=== PATIENT | male | born 1935 | race Caucasian/White ===

== ENCOUNTER 2017-04-01 16:55 | Emergency (ER) | payer MEDICARE, MEDICAID ==
[2017-04-01 17:35] LABS: ABSOLUTE MONOCYTES (AUTO) 0.8 10^3/uL (0.1-1.4); ABSOLUTE NEUT (AUTO) 10.8 10^3/uL (1.7-8.2); BASOPHILS % (AUTO) 0.2 % (0-2); EOSINOPHILS % (AUTO) 0.3 % (0-6); HEMATOCRIT 37.6 % (37.9-51.0); HEMOGLOBIN 12.8 g/dL (13.5-17.0); HGB HCT DIFFERENCE 0.8; LYMPHOCYTES % (AUTO) 7.7 % (13-45); MEAN CORPUSCULAR HEMOGLOBIN 32.4 pg (27.0-33.4); MEAN CORPUSCULAR VOLUME 95 fl (80-97); MONOCYTES % (AUTO) 6.4 % (3-13); RED BLOOD COUNT 3.95 10^6/uL (4.35-5.55); RED CELL DISTRIBUTION WIDTH 15.8 % (11.5-14.0); SEGMENTED NEUTROPHILS % (AUTO) 85.4 % (42-78); WHITE BLOOD COUNT 12.6 10^3/uL (4.0-10.5)
[2017-04-01] MEDS ORDERED: NORMAL SALINE 1000 ML 1,000 ML IV PRN (17:51)
--- NOTE | 2017-04-01 17:52 | ER Document Report ---
ED General - General Chief Complaint: General Weakness Stated Complaint: WEAKNESS Time Seen by Provider: 04/01/17 17:38 Mode of Arrival: Stretcher Information source: Patient TRAVEL OUTSIDE OF THE [place] IN LAST 30 DAYS: No - HPI Patient complains to provider of: Generalized weakness Onset: Other - 2 days Onset/Duration: Gradual Quality of pain: No pain Associated symptoms: Weakness Notes: Patient is an 81-year-old male presenting to the emergency room today complaining of generalized weakness with decreased appetite, as well as occasional nausea, he denies any vomiting, no diarrhea, no fever or chills, no cough, cold or congestion, no dysuria or hematuria, states he has been mostly sleeping the last 2 days and has not had much to eat either, patient denies any chest pain or shortness of breath, no abdominal pain - Related Data Allergies/Adverse Reactions: No Known Allergies Allergy (Verified 12/14/15 12:27) Past Medical History - General Information source: Patient - Social History Smoking Status: Never Smoker Family History: Arthritis, CAD, Hypertension - Past Medical History Cardiac Medical History: Reports: Hx Atrial Fibrillation, Hx Coronary Artery Disease, Hx Heart Attack, Hx Hypercholesterolemia, Hx Hypertension, Hx Peripheral Vascular Disease Pulmonary Medical History: Reports: Hx COPD, Hx Pneumonia Neurological Medical History: Denies: Hx Seizures GI Medical History: Reports: Hx Ulcer - esophageal varices, duodenal ulcer, UGI bleed Musculoskeltal Medical History: Reports Hx Arthritis Psychiatric Medical History: Reports: Hx Dementia - Patient seems to have some mild dementia, and is taking Aricept, Hx Depression Past Surgical History: Reports: Hx Appendectomy, Hx Cardiac Catheterization - December 2103, Hx Cholecystectomy, Hx Coronary Stent - x2 December 2013, Hx Tonsillectomy , Hx Vascular Surgery - AAA endovascular stent about Apr 2014. - Immunizations Hx Diphtheria, Pertussis, Tetanus Vaccination: Yes Hx Pneumococcal Vaccination: 03/16/11 Review of Systems - Review of Systems Constitutional: Malaise, Weakness EENT: No symptoms reported Cardiovascular: No symptoms reported Respiratory: No symptoms reported Gastrointestinal: Nausea Genitourinary: No symptoms reported Male Genitourinary: No symptoms reported Musculoskeletal: No symptoms reported Skin: No symptoms reported Hematologic/Lymphatic: No symptoms reported Neurological/Psychological: No symptoms reported -: Yes All other systems reviewed and negative Physical Exam - Vital signs Vitals: Resp Pulse Ox 29 H 95 04/01/17 17:01 04/01/17 17:01 Interpretation: Normal - General General appearance: Appears well, Alert - HEENT Head: Normocephalic, Atraumatic Eyes: Normal Conjunctiva: Normal Extraocular movements intact: Yes Eyelashes: Normal Pupils: PERRL Mucous membranes: Normal Pharynx: Normal Neck: Normal - Respiratory Respiratory status: No respiratory distress Chest status: Nontender Breath sounds: Normal Chest palpation: Normal - Cardiovascular Rhythm: Regular Heart sounds: Normal auscultation Murmur: No - Abdominal Inspection: Normal Distension: No distension Bowel sounds: Normal Tenderness: Nontender Organomegaly: No organomegaly - Back Back: Normal, Nontender - Extremities General upper extremity: Normal inspection, Nontender, Normal color, Normal ROM , Normal temperature General lower extremity: Normal inspection, Nontender, Normal color, Normal ROM , Normal temperature, Normal weight bearing. No: Destiny's sign - Neurological Neuro grossly intact: Yes Cognition: Normal Orientation: AAOx4 Crispin Coma Scale Eye Opening: Spontaneous Crispin Coma Scale Verbal: Oriented Comstock Coma Scale Motor: Obeys Commands Crispin Coma Scale Total: 15 Speech: Normal Motor strength normal: LUE, RUE, LLE, RLE Sensory: Normal - Psychological Associated symptoms: Normal affect, Normal mood - Skin Skin Temperature: Warm Skin Moisture: Dry Skin Color: Normal Course - Re-evaluation Re-evalutation: 04/01/17 20:19 Lab and imaging findings were discussed with patient at bedside which are fairly unremarkable, he is noted to have mild leukocytosis, however no signs of an infection with a clear chest x-ray, urinalysis is unremarkable, I did review his medications as he brought with him, he is on several medications that are sedating such as a fentanyl patch, and oxycodone, I believe his symptoms are likely related to these medications causing him to be sleepy, and likely he may not have eaten, however he is also on Namenda, so I believe there is a component of dementia as well, however patient does not meet any criteria to be admitted to the hospital at this time, his vital signs have been stable, his workup is relatively unremarkable, therefore he will be discharged with a prescription for treatment of conjunctivitis of the right eye and instructions for follow-up, patient acknowledges understanding and agreement with this plan - Vital Signs Vital signs: Temp Pulse Resp BP Pulse Ox 98.1 F 27 H 94 04/01/17 17:05 04/01/17 18:00 04/01/17 18:00 - Laboratory Result Diagrams: 04/01/17 17:20 04/01/17 17:20 Laboratory results interpreted by me: 04/01/17 04/01/17 04/01/17 17:20 17:20 17:20 WBC 12.6 H RBC 3.95 L Hgb 12.8 L Hct 37.6 L RDW 15.8 H Seg Neutrophils % 85.4 H Lymphocytes % 7.7 L Absolute Neutrophils 10.8 H APTT 39.0 H Sodium 135.4 L Carbon Dioxide 20 L BUN 24 H Total Bilirubin 1.7 H Direct Bilirubin 0.9 H ALT 19 L Creatine Kinase 25 L Albumin 3.1 L Urine Protein Urine Ketones Urine Blood Urine Urobilinogen 04/01/17 19:50 WBC RBC Hgb Hct RDW Seg Neutrophils % Lymphocytes % Absolute Neutrophils APTT Sodium Carbon Dioxide BUN Total Bilirubin Direct Bilirubin ALT Creatine Kinase Albumin Urine Protein 100 H Urine Ketones 80 H Urine Blood SMALL H Urine Urobilinogen 4.0 H - Diagnostic Test Radiology reviewed: Image reviewed - EKG Interpretation by Me Rate: Normal Rhythm: A.Fib Discharge - Discharge Clinical Impression: Generalized weakness Conjunctivitis Qualifiers: Conjunctivitis type: acute Acute conjunctivitis type: bacterial Laterality: right Qualified Code(s): H10.31 - Unspecified acute conjunctivitis, right eye Condition: Stable Disposition: HOME, SELF-CARE Instructions: Conjunctivitis ([facility]), Weakness ([facility]) Additional Instructions: Follow up with your primary care provider in one to 2 days. Return to the emergency room immediately if symptoms worsen or any additional concerns. Prescriptions: Polymyxin B Sulfate/Tmp [Polytrim Oph Soln 10 ml] 1 dose OP 5XD #1 bottle
[2017-04-01 17:58] LABS: ALANINE AMINOTRANSFERASE 19 U/L (21-72); ALBUMIN 3.1 g/dL (3.5-5.0); ALKALINE PHOSPHATASE 108 U/L (38-126); ANION GAP 12 (5-19); ASPARTATE AMINO TRANSFERASE 31 U/L (17-59); BILIRUBIN,DIRECT 0.9 mg/dL (0.0-0.4); BILIRUBIN,TOTAL 1.7 mg/dL (0.2-1.3); BLOOD UREA NITROGEN 24 mg/dL (7-20); CALCIUM 8.9 mg/dL (8.4-10.2); CARBON DIOXIDE 20 mmol/L (22-30); CHLORIDE 103 mmol/L (98-107); CREATINE KINASE 25 U/L (55-170); CREATININE RESULT 0.96 mg/dL (0.52-1.25); GLUCOSE 92 mg/dL (75-110); POTASSIUM 4.2 mmol/L (3.6-5.0); SODIUM 135.4 mmol/L (137-145); TOTAL PROTEIN 6.3 g/dL (6.3-8.2)
[2017-04-01 18:11] LABS: CREATINE KINASE MB 0.89 ng/mL (<4.55); TROPONIN I < 0.012 ng/mL
[2017-04-01 18:12] LABS: PROTHROMBIN TIME 12.8 SEC (11.4-15.4)
[2017-04-01 20:01] LABS: APPEARANCE,URINE CLEAR; BILIRUBIN,URINE NEGATIVE (NEGATIVE); GLUCOSE, URINE NEGATIVE (NEGATIVE); KETONES,URINE 80 mg/dL (NEGATIVE); LEUKOCYTE ESTERASE,URINE NEGATIVE (NEGATIVE); NITRITE,URINE NEGATIVE (NEGATIVE); PROTEIN,URINE 100 mg/dL (NEGATIVE); URINE SPECIFIC GRAVITY 1.019
--- NOTE | 2017-04-01 20:26 | EKG REPORT ---
SEVERITY:- ABNORMAL ECG - ATRIAL FIBRILLATION : Confirmed by: Alverto Freitas MD 01-Apr-2017 20:26:08
[2017-04-01 22:36] VITALS: BP 117/65
--- NOTE | 2017-04-02 16:18 | RADIOLOGY REPORT (SQ) ---
EXAM DESCRIPTION: CHEST PA/LAT COMPLETED DATE/TIME: 04/01/2017 6:53 pm REASON FOR STUDY: gen weakness COMPARISON: 08/12/2016 EXAM PARAMETERS: NUMBER OF VIEWS: two views TECHNIQUE: Digital Frontal and Lateral radiographic views of the chest acquired. RADIATION DOSE: NA LIMITATIONS: none FINDINGS: LUNGS AND PLEURA: No opacities, masses or pneumothorax. No pleural effusion. MEDIASTINUM AND HILAR STRUCTURES: No masses or contour abnormalities. HEART AND VASCULAR STRUCTURES: Heart normal size. No evidence for failure. BONES: No acute findings. HARDWARE: None in the chest. OTHER: No other significant finding. IMPRESSION: NO ACUTE RADIOGRAPHIC FINDING IN THE CHEST. TECHNICAL DOCUMENTATION: JOB ID: [id number] [employer]- All Rights Reserved
== END 2017-04-01 22:45 | disposition home or self-care (01) ==
LOC: ER 16:55
DX: R53.1 Weakness (principal); H10.31 Unspecified acute conjunctivitis, right eye; K46.9 Unspecified abdominal hernia without obstruction or gangrene; R63.0 Anorexia; R11.0 Nausea; R53.81 Other malaise; D72.829 Elevated white blood cell count, unspecified; I48.91 Unspecified atrial fibrillation; I25.10 Atherosclerotic heart disease of native coronary artery without angina pectoris; I25.2 Old myocardial infarction; I10 Essential (primary) hypertension; Z98.61 Coronary angioplasty status; Z79.891 Long term (current) use of opiate analgesic; Z79.899 Other long term (current) drug therapy
CPT/HCPCS: 36415; 71020; 80053; 81001; 82550; 82553; 84484; 85025; 85610; 85730; 87086; 93005; 93010; 99285

== ENCOUNTER 2017-05-13 20:52 | Emergency (ER) | payer MEDICARE, MEDICAID ==
[2017-05-13] MEDS ORDERED: NORMAL SALINE 1000 ML 1,000 ML IV ONE (21:01)
--- NOTE | 2017-05-13 21:04 | ER Document Report ---
ED General - General Stated Complaint: WEAKNESS Time Seen by Provider: 05/13/17 20:59 Notes: Patient is an 81-year-old male with a past medical history of coronary artery disease with multiple MIs in the past, history of chronic alcohol abuse, dementia, who presents with persistent vomiting and "feeling like I am going to ". Patient apparently has been having persistent vomiting throughout the day without any diarrhea. Patient did note that after multiple episodes of vomiting he did develop a dull, constant throbbing epigastric abdominal pain that radiated into his left chest. States this does not feel like prior MIs. He denies any associated shortness of breath or diaphoresis. He does arrive by EMS. Vitals in route were within normal limits. Patient did not try anything to improve his symptoms at home and he did not know setting seem to worsen the symptoms. He states he has not been able to tolerate oral intake at home since onset of his symptoms. He does have a history of similar episodes in the past several episodes which have required admission to the hospital. TRAVEL OUTSIDE OF THE [place] IN LAST 30 DAYS: No - Related Data Allergies/Adverse Reactions: No Known Allergies Allergy (Verified 04/16/17 11:02) Past Medical History - General Information source: Patient - Social History Smoking Status: Former Smoker Frequency of alcohol use: None Drug Abuse: None Family History: Arthritis, CAD, Hypertension - Past Medical History Cardiac Medical History: Reports: Hx Atrial Fibrillation, Hx Coronary Artery Disease, Hx Heart Attack - 3 HEART ATTACKS LAST IN JUL 2016, Hx Hypercholesterolemia, Hx Hypertension - ON MEDS, Hx Peripheral Vascular Disease Pulmonary Medical History: Reports: Hx Pneumonia - 2015 Denies: Hx Asthma, Hx Bronchitis, Hx COPD Neurological Medical History: Denies: Hx Cerebrovascular Accident, Hx Seizures GI Medical History: Reports: Hx Ulcer - esophageal varices, duodenal ulcer, UGI bleed Musculoskeltal Medical History: Denies Hx Arthritis Psychiatric Medical History: Reports: Hx Dementia - Patient seems to have some mild dementia, and is taking Aricept, Hx Depression Past Surgical History: Reports: Hx Appendectomy, Hx Cardiac Catheterization - December 2103, Hx Cholecystectomy, Hx Coronary Stent - x2 December 2013, Hx Tonsillectomy , Hx Vascular Surgery - AAA endovascular stent about Apr 2014. - Immunizations Hx Diphtheria, Pertussis, Tetanus Vaccination: Yes Hx Pneumococcal Vaccination: 03/16/11 Physical Exam - Vital signs Vitals: Resp Pulse Ox 26 H 99 05/13/17 20:58 05/13/17 20:58 Course - Re-evaluation Re-evalutation: 05/13/17 21:03 Patient presents with persistent vomiting, generalized abdominal pain, and a feeling that he was about to . Patient is somewhat ill in appearance on presentation, skin is somewhat icteric. Dry oral mucosa. Initial vitals show tachycardia but otherwise unremarkable. Abdominal exam does have some generalized abdominal pain without any localization of the pain on palpation. Review of prior medical records does reveal the patient is a history of similar presentations with admissions repeatedly in the past. He does have a history of chronic alcoholism with associated liver cirrhosis but no prior history of spontaneous bacterial peritonitis and has no obvious fluid wave on examination. Will proceed with IV fluids, labs, CT abdomen pelvis given patient's age and history of a prior abdominal aortic aneurysmal repair as well as prior small bowel obstructions. Of note, patient is also on chronic pain management and currently has a fentanyl patch in place. 05/13/17 22:35 Patient's initial troponin is elevated at 0.196. His EKG is without ST changes. He continues to deny chest pain. Awaiting CT of the abdomen and pelvis given his diffuse abdominal pain on palpation. If this is unremarkable will plan for transfer to [facility] given elevated troponin. 05/14/17 02:09 The second troponin is continued to elevate to 0.586. I have discussed this case with the [facility] subscription crew leader on-call Dr. Nowak who was accepted for transfer although unfortunately they do not have any beds. Patient remains hemodynamically stable at this time. I have also contacted [facility] who reports they do not have any bed availability. I have also contacted [facility] as it appears they may have beds with an earlier availability. Given the patient's troponin is up trending he will receive a dose of Lovenox. Will continue to monitor closely. 05/14/17 02:50 I have discussed with at [facility] who has accepted the patient in transfer. I have again reassess the patient, he states he overall feels much better, continues to be without chest pain, no further vomiting, has tolerated oral intake at this time. A third troponin has been scheduled for 0430 and he has been made n.p.o. per accepting physicians request. 05/14/17 04:24 Patient's blood pressure has begun to soften slightly 90 to 75. Map remains a 81. An additional 500 cc bolus of fluid has been ordered. Patient does state that he continues to feel much better than time of arrival, continues to deny chest pain. I have reviewed this case with Dr. Marlon Hatch will continue to monitor until transfer arrives. - Vital Signs Vital signs: Temp Pulse Resp BP Pulse Ox 98.0 F 15 96/54 L 94 05/14/17 03:25 05/14/17 03:26 05/14/17 03:48 05/14/17 03:26 - Laboratory Result Diagrams: 05/13/17 21:30 05/13/17 21:30 Laboratory results interpreted by me: 05/13/17 05/13/17 05/13/17 21:30 21:30 23:17 WBC 13.5 H RDW 14.1 H Seg Neutrophils % 88.3 H Lymphocytes % 6.2 L Absolute Neutrophils 11.9 H Chloride 108 H Carbon Dioxide 13 L Glucose 201 H Direct Bilirubin 0.8 H ALT 20 L Urine Protein 100 H Urine Ketones 80 H Urine Bilirubin SMALL H Urine Urobilinogen 4.0 H Urine Ascorbic Acid 20 H - Diagnostic Test Radiology reviewed: Image reviewed, Reports reviewed Radiology results interpreted by me: 05/14/17 02:10 Chest x-ray: No acute infiltrate or pneumothorax - EKG Interpretation by Me Additional EKG results interpreted by me: 05/14/17 02:13 A. fib with rapid ventricular response. Rate 109. Intermittent PVCs. No ST elevations or depressions. QTC is 496 Critical Care Note - Critical Care Note Total time excluding time spent on procedures (mins): 38 Comments: Critical care time spent obtaining history from patient or surrogate, discussions with consultants, development of treatment plan with patient or surrogate, evaluation of patient's response to treatment, examination of patient , ordering and performing treatments and interventions, ordering and review of laboratory studies, re-evaluation of patient's condition, ordering and review of radiographic studies and review of old charts Discharge - Discharge Clinical Impression: NSTEMI (non-ST elevated myocardial infarction) Vomiting Qualifiers: Vomiting type: unspecified Vomiting Intractability: non-intractable Nausea presence: with nausea Qualified Code(s): R11.2 - Nausea with vomiting, unspecified Condition: Fair Disposition: [facility] Referrals: LORI ROBIN III, MD [Primary Care Provider] - Follow up as needed
--- NOTE | 2017-05-13 21:45 | RADIOLOGY REPORT (SQ) ---
EXAM DESCRIPTION: CHEST SINGLE VIEW COMPLETED DATE/TIME: 05/13/2017 9:32 pm REASON FOR STUDY: diffuse abdominal pain, vomiting, hx sbo COMPARISON: 04/01/2017 EXAM PARAMETERS: NUMBER OF VIEWS: One view. TECHNIQUE: Single frontal radiographic view of the chest acquired. RADIATION DOSE: NA LIMITATIONS: None. FINDINGS: LUNGS AND PLEURA: No opacities, masses or pneumothorax. No pleural effusion. Chronic appe aring changes are identified. I cannot exclude a component of obstructive lung disease. MEDIASTINUM AND HILAR STRUCTURES: No masses. Contour normal. HEART AND VASCULAR STRUCTURES: Cardiac silhouette is at the upper limits of normal in size. BONES: No acute findings. HARDWARE: None in the chest. OTHER: No other significant finding. IMPRESSION: No significant interval change. No acute findings. Other findings as noted above TECHNICAL DOCUMENTATION: JOB ID: [id number]
[2017-05-13 21:46] LABS: ABSOLUTE LYMPHOCYTES (AUTO) 0.8 10^3/uL (0.5-4.7); ABSOLUTE MONOCYTES (AUTO) 0.7 10^3/uL (0.1-1.4); ABSOLUTE NEUT (AUTO) 11.9 10^3/uL (1.7-8.2); BASOPHILS % (AUTO) 0.2 % (0-2); HEMATOCRIT 41.7 % (37.9-51.0); HEMOGLOBIN 13.9 g/dL (13.5-17.0); LYMPHOCYTES % (AUTO) 6.2 % (13-45); MEAN CORPUSCULAR HEMOGLOBIN 31.5 pg (27.0-33.4); MEAN CORPUSCULAR HGB CONC 33.5 g/dL (32.0-36.0); MEAN CORPUSCULAR VOLUME 94 fl (80-97); MONOCYTES % (AUTO) 5.3 % (3-13); RED BLOOD COUNT 4.44 10^6/uL (4.35-5.55); RED CELL DISTRIBUTION WIDTH 14.1 % (11.5-14.0); SEGMENTED NEUTROPHILS % (AUTO) 88.3 % (42-78); WHITE BLOOD COUNT 13.5 10^3/uL (4.0-10.5)
[2017-05-13 22:08] LABS: ALANINE AMINOTRANSFERASE 20 U/L (21-72); ALBUMIN 3.5 g/dL (3.5-5.0); ALKALINE PHOSPHATASE 111 U/L (38-126); ANION GAP 19 (5-19); ASPARTATE AMINO TRANSFERASE 25 U/L (17-59); BILIRUBIN,DIRECT 0.8 mg/dL (0.0-0.4); BILIRUBIN,TOTAL 1.2 mg/dL (0.2-1.3); BLOOD UREA NITROGEN 13 mg/dL (7-20); CALCIUM 9.1 mg/dL (8.4-10.2); CARBON DIOXIDE 13 mmol/L (22-30); CHLORIDE 108 mmol/L (98-107); CREATININE RESULT 0.95 mg/dL (0.52-1.25); GLUCOSE 201 mg/dL (75-110); LIPASE 102.6 U/L (23-300); POTASSIUM 4.4 mmol/L (3.6-5.0); SODIUM 139.7 mmol/L (137-145); TOTAL PROTEIN 6.7 g/dL (6.3-8.2)
[2017-05-13 23:51] LABS: APPEARANCE,URINE SLIGHTLY-CLOUDY; BILIRUBIN,URINE SMALL (NEGATIVE); GLUCOSE, URINE NEGATIVE (NEGATIVE); KETONES,URINE 80 mg/dL (NEGATIVE); LEUKOCYTE ESTERASE,URINE NEGATIVE (NEGATIVE); NITRITE,URINE NEGATIVE (NEGATIVE); PROTEIN,URINE 100 mg/dL (NEGATIVE)
[2017-05-14] MEDS ORDERED: ONDANSETRON HCL INJ/PF 4 MG/2 ML SDV IV ONE (00:15)
[2017-05-14] MEDS ORDERED: ASPIRIN 81 MG TABLET, CHEWABLE PO ONE (00:18)
--- NOTE | 2017-05-14 00:47 | RADIOLOGY REPORT (SQ) ---
EXAM DESCRIPTION: CT ABD/PELVIS WITH IV ONLY COMPLETED DATE/TIME: 05/13/2017 11:37 pm REASON FOR STUDY: diffuse abdominal pain, vomiting, hx sbo COMPARISON: 08/12/2016. TECHNIQUE: CT scan of the abdomen and pelvis performed using helical scanning technique with dynamic intravenous contrast injection. No oral contrast. Images reviewed with lung, soft tissue, and bone windows. Reconstructed coronal and sagittal MPR images reviewed. Delayed images for evaluation of the urinary system also acquired. All images stored on PACS. All CT scanners at this facility use dose modulation, iterative reconstruction, and/or weight based d osing when appropriate to reduce radiation dose to as low as reasonably achievable (ALARA). [facility]: Dose Right [facility]: CareDose [facility]: Dose Right [facility]: Teradose 4D [facility]: Suncore CONTRAST TYPE AND DOSE: contrast/concentration: Isovue 370.00 mg/ml; Total Contrast Delivered: 98.0 ml; Total Saline Delivered: 50.0 ml RENAL FUNCTION: Creatinine 1.0 RADIATION DOSE: Up-to-date CT equipment and radiation dose reduction techniques were employed. CTDIv ol: 7.5 mGy. DLP: 770 mGy-cm.. LIMITATIONS: None. FINDINGS: LOWER CHEST: Small mixed interstitial and airspace opacities of bilateral lung bases, righ t more than left. Minimal bibasilar effusion. Coronary arterial calcification -stenting. LIVER: Normal size. No masses. No dilated ducts. SPLEEN: Normal size. No focal lesions. PANCREAS: No masses. No significant calcifications. No adjacent inflammation or peripancreatic fluid collections. Pancreatic duct not dilated. GALLBLADDER: No identified stones by CT criteria. No inflammatory changes to suggest cholecystitis. ADRENAL GLANDS: No significant masses or asymmetry. RIGHT KIDNEY AND URETER: No solid masses. No significant calcifications. No hydronephrosis or hyd roureter. LEFT KIDNEY AND URETER: No solid masses. No significant calcifications. No hydronephrosis or hydr oureter. AORTA AND VESSELS: No aneurysm. No dissection. Renal arteries, SMA, celiac without stenosis. Aorto b i-iliac graft. 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 RETROPERITONEUM: No retroperitoneal adenopathy, hemorrhage or masses. BOWEL AND PERITONEAL CAVITY: No masses or inflammatory changes. No free fluid or peritoneal masses. Moderate colonic diverticulosis. APPENDIX: No evidence of appendicitis. PELVIS: No mass. No free fluid. Normal bladder. ABDOMINAL WALL: No masses. No hernias. BONES: Moderate to severe disc desiccation between the L1 and S1 levels. Interval worsening. OTHER: No other significant finding. IMPRESSION: 1. 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 Consider vascular surgery consultation. 2. Sm all right lower lobar pneumonia appears relatively compared with prior CT from July 2016. 3. Co lonic diverticulosis. TECHNICAL DOCUMENTATION: JOB ID: [id number] Quality ID # [id number]: Final reports with documentation of one or more dose reduction techniques (e.g., Au tomated exposure control, adjustment of the mA and/or kV according to patient size, use of iterative reconstruction technique) 2010 [employer]- All Rights Reserved
[2017-05-14] MEDS ORDERED: ENOXAPARIN SODIUM INJ 80 MG/0.8 ML DISP.SYRIN SUBCUT SCH (02:30)
--- NOTE | 2017-05-14 03:56 | EKG REPORT ---
SEVERITY:- ABNORMAL ECG - ATRIAL FIBRILLATION, V-RATE 82-127 MULTIFORM VENTRICULAR PREMATURE COMPLEXES LOW VOLTAGE IN FRONTAL LEADS CONSIDER ANTERIOR INFARCT BORDERLINE PROLONGED QT INTERVAL : Confirmed by: Noris Kruse MD 14-May-2017 03:55:13
[2017-05-14 04:54] VITALS: BP 102/71
== END 2017-05-14 04:54 | disposition short-term general hospital (02) ==
LOC: ER 20:52
DX: I21.4 Non-ST elevation (NSTEMI) myocardial infarction (principal); R11.2 Nausea with vomiting, unspecified; R53.1 Weakness; I25.10 Atherosclerotic heart disease of native coronary artery without angina pectoris; R11.10 Vomiting, unspecified; Z87.891 Personal history of nicotine dependence
CPT/HCPCS: 93005; 99291; 96372; 96361; 96374; 36415; 83690; 85025; 80053; 81001; 84484; 71010; 74177; 93010; A9270; J2405; J7030; J1650